=== PATIENT | female | born 1965 | race Caucasian/White ===

== ENCOUNTER 2020-10-17 03:06 | Emergency (ER) | payer MEDICARE ==
[2020-10-17 04:46] LABS: RED BLOOD COUNT 4.85 M/UL (4.00-5.10); WHITE BLOOD COUNT 7.4 K/UL (4.5-11.0)
[2020-10-17 05:00] LABS: BUN/CREATININE RATIO 25 (0-10)
[2020-10-17] MEDS ORDERED: IMITREX25 MG PO (07:44)
[2020-10-17] MEDS ORDERED: IBUPROFEN800 MG PO (07:44)
== END 2020-10-17 07:55 | disposition home or self-care (01) ==
LOC: ER1 03:06
PROVIDERS: Physician Assistant
DX: R51.9 Headache, unspecified (principal); R42 Dizziness and giddiness; F17.210 Nicotine dependence, cigarettes, uncomplicated; J44.9 Chronic obstructive pulmonary disease, unspecified; E03.9 Hypothyroidism, unspecified; Z90.49 Acquired absence of other specified parts of digestive tract; Z90.89 Acquired absence of other organs
CPT/HCPCS: 70496; 70498; 80053; 85025; 99284; Q9967

== ENCOUNTER 2020-11-08 22:33 | Emergency (ER) | payer MEDICARE ==
[~2020-11-08] VITALS: Ht 165.1 cm; Wt 59.0 kg
[~2020-11-08 22:33] MED LIST: IBUPROFEN800 MG PO; IMITREX25 MG PO
[2020-11-09 02:59] LABS: RED BLOOD COUNT 5.12 M/UL (4.00-5.10); WHITE BLOOD COUNT 6.3 K/UL (4.5-11.0)
[2020-11-09 03:15] LABS: BUN/CREATININE RATIO 28 (0-10)
[2020-11-09] MEDS ORDERED: FOLIC ACID1 MG PO (12:40)
[2020-11-09] MEDS ORDERED: OMEPRAZOLE20 MG PO (12:41)
[2020-11-09 15:08] LABS: BUN/CREATININE RATIO 29 (0-10)
== END 2020-11-09 16:04 | disposition left against medical advice (07) ==
LOC: ER1 22:33 → CDU 11-09 05:16
PROVIDERS: Family Medicine; Physician Assistant
DX: T39.091A Poisoning by salicylates, accidental (unintentional), initial encounter (principal); R41.82 Altered mental status, unspecified; E03.9 Hypothyroidism, unspecified; F14.90 Cocaine use, unspecified, uncomplicated; F11.90 Opioid use, unspecified, uncomplicated; J44.9 Chronic obstructive pulmonary disease, unspecified; Z20.822 Contact with and (suspected) exposure to COVID-19
CPT/HCPCS: 70450; 71045; 80048; 80053; 80307; 81001; 82550; 82553; 82803; 83735; 83874; 84439; 84443; 84484; 85025; 93005; 99285; G0480; J7070; U0002